=== PATIENT | male | born 1985 | race Caucasian/White ===

== ENCOUNTER 2021-03-05 11:58 | Emergency (ER) | payer BC ==
[~2021-03-05] VITALS: Ht 175.3 cm; Wt 69.4 kg
--- OUTSIDE RECORDS SUMMARY | 2021-03-05 12:04 | CCD ---
Author Author [facility] Address Unknown Phone Unavailable Support Name Relationship Address Phone FIBERMARK DSI Next Of Kin [address] [phone] Wesley DARNELL Next Of Kin [address] [place] [address] MANN FREDERIC Next Of Kin [address] [place] [address] Re-disclosure Warning The records that you are about to access may contain information from federally-assisted alcohol or drug abuse programs. If such information is present, then the following federally mandated warning applies: This information has been disclosed to you from records protected by federal confidentiality rules (42 CFR part 2). The federal rules prohibit you from making any further disclosure of this information unless further disclosure is expressly permitted by the written consent of the person to whom it pertains or as otherwise permitted by 42 CFR part 2. A general authorization for the release of medical or other information is NOT sufficient for this purpose. The Federal rules restrict any use of the information to criminally investigate or prosecute any alcohol or drug abuse patient.The records that you are about to access may contain highly sensitive health information, the redisclosure of which is protected by Article 27-F of the [facility] Public Health law. If you continue you may have access to information: Regarding HIV / AIDS; Provided by facilities licensed or operated by the [facility] Office of Mental Health; or Provided by the [facility] Office for People With Developmental Disabilities. If such information is present, then the following [facility] mandated warning applies: This information has been disclosed to you from confidential records which are protected by state law. State law prohibits you from making any further disclosure of this information without the specific written consent of the person to whom it pertains, or as otherwise permitted by law. Any unauthorized further disclosure in violation of state law may result in a fine or long-term sentence or both. A general authorization for the release of medical or other information is NOT sufficient authorization for further disc losure. Medications No Information Insurance Providers Payer name Policy type / Coverage type Policy ID Covered libertarian ID Covered libertarian's relationship to franco Policy Franco Plan Information SELF PAY BR2 Problems, Conditions, and Diagnoses No Information Surgeries/Procedures No Information Results ID Date Data Source [id number] 04/14/2020 12:00:00 AM EST [facility] Name Value Range Interpretation Code Description Data Aleida rce(s) Supporting Document(s) Carestart Rapid COVID Antigen Test [facility] This lab was reported by Luis [facility] Rupert lu. Procedure Social History No Information
--- NOTE | 2021-03-05 12:31 | REP ---
INDICATION: punched wall COMPARISON: None. TECHNIQUE: AP, lateral, bilateral oblique views left hand. FINDINGS: Angulated comminuted fracture at the head of the 5th metacarpal bone consistent with acute boxer's fracture. Overlying soft tissue swelling. Remainder of the examination is normal. IMPRESSION: Boxer's fracture as described above. <Electronically signed by Nilay Peter > 03/05/21 [id number]
--- OUTSIDE RECORDS SUMMARY | 2021-03-05 13:24 | CCD ---
Author Author [facility] Address Unknown Phone Unavailable Support Name Relationship Address Phone FIBERMARK DSI Next Of Kin [address] [place] [address] Wesley DARNELL Next Of Kin [address] [phone] MANN FREDERIC Next Of Kin [address] [place] [address] Re-disclosure Warning The records that you are [...] is protected by Article 27-F of the [facility] Public Health law. If you continue you may have access to information: Regarding HIV / AIDS; Provided by facilities licensed or operated by the [facility] Office of Mental Health; or Provided by the [facility] Office for People With Developmental Disabilities. If such information is present, then the following [facility] mandated warning applies: This information has [...] law may result in a fine or mcfp sentence or both. A general authorization for the release of medical or other information is NOT sufficient authorization for further disc losure. Medications No Information Insurance Providers Payer name Policy type / Coverage type Policy ID Covered libertarian ID Covered libertarian's relationship to franco Policy Franco Plan Information [employer] [place] PPO [phone] [id number] SP [id number] SELF PAY BR2 Problems, Conditions, and Diagnoses No Information Surgeries/Procedures No Information Results ID Date Data Source [id number] 04/14/2020 12:00:00 AM EST [facility] Name Value Range Interpretation Code Description Data Aleida rce(s) Supporting Document(s) Carestart Rapid COVID Antigen Test [facility] This lab was reported by Luis lu. Procedure Social History No Information
[2021-03-05 13:26] VITALS: BP 127/66
== END 2021-03-05 13:32 | disposition home or self-care (01) ==
LOC: M ED 11:58
DX: S62.397A Other fracture of fifth metacarpal bone, left hand, initial encounter for closed fracture (principal); W22.8XXA Striking against or struck by other objects, initial encounter; Y92.018 Other place in single-family (private) house as the place of occurrence of the external cause

== ENCOUNTER → 2021-04-05 | Outpatient (CLI) | payer BC | LOC: M OUTALCOH 09:12 | PROVIDERS: ATTEND Psychiatry & Neurology Psychiatry | DX: Z03.89 Encounter for observation for other suspected diseases and conditions ruled out (principal); Z72.0 Tobacco use ==

== ENCOUNTER 2021-04-18 15:11 | Outpatient (RCR) | payer BC | END 2021-05-15 | LOC: M OUTALCOH 15:11 | PROVIDERS: ATTEND Psychiatry & Neurology Psychiatry | DX: Z03.89 Encounter for observation for other suspected diseases and conditions ruled out (principal); Z72.0 Tobacco use ==